=== PATIENT | female | born 1965 | race African-American/Black ===

== ENCOUNTER 2016-06-29 11:54 | Emergency (ER) | payer BC ==
--- NOTE | 2016-06-29 13:33 | ER Document Report ---
ED Medical Screen (RME) - General Mode of Arrival: Ambulatory Information source: Patient TRAVEL OUTSIDE OF THE [place] IN LAST 30 DAYS: No - HPI Patient complains to provider of: palpitations <JOCELYN SANDERS - Last Filed: 06/29/16 13:38> <AUBREE LIVINGSTON - Last Filed: 06/29/16 21:11> - General Chief Complaint: Palpitations Stated Complaint: palpitations Time Seen by Provider: 06/29/16 13:28 Notes: Patient with history of HTN presents with complaints of palpitations onset yesterday. Patient states she took her blood pressure when she noticed her heart was racing and it was high so she took a Lisinopril which has not slowed her heart. Patient states she has had palpations in the past and used to be on medication for them. Patient is visiting the area. Denies chest pain, difficulty breathing, headache, blurry vision, or back pain. Patient has not had a heart attack. Patient states she does drink about 3 cokes a day. (JOCELYN SANDERS) - Related Data Allergies/Adverse Reactions: Sulfa (Sulfonamide Antibiotics) Allergy (Severe, Verified 06/29/16 11:56) Rash Past Medical History - General Information source: Patient - Social History Cigarette use (# per day): No Frequency of alcohol use: None Drug Abuse: None Family history: Reviewed & Not Pertinent - Past Medical History Cardiac Medical History: Reports: Hx Hypertension - on meds Pulmonary Medical History: Denies: Hx Asthma, Hx Bronchitis, Hx COPD, Hx Pneumonia Neurological Medical History: Denies: Hx Cerebrovascular Accident, Hx Seizures Renal/ Medical History: Denies: Hx Peritoneal Dialysis Musculoskeltal Medical History: Denies Hx Arthritis - Immunizations Hx Diphtheria, Pertussis, Tetanus Vaccination: Yes <JOCELYN SANDERS - Last Filed: 06/29/16 13:38> Review of Systems - Review of Systems Cardiovascular: See HPI, Heart racing <JOCELYN SANDERS - Last Filed: 06/29/16 13:38> Physical Exam - Vital signs Interpretation: Tachycardic - Respiratory Respiratory status: No respiratory distress - Cardiovascular Rhythm: Tachycardia Heart sounds: Normal auscultation <JOCELYN SANDERS - Last Filed: 06/29/16 13:38> Course - Laboratory Result Diagrams: 06/29/16 16:20 06/29/16 16:20 <AUBREE LIVINGSTON - Last Filed: 06/29/16 21:11> - Vital Signs Vital signs: Temp Pulse Resp BP Pulse Ox 98.8 F 150 H 16 139/91 H 100 06/29/16 11:57 06/29/16 11:57 06/29/16 18:01 06/29/16 18:01 06/29/16 18:01 - Laboratory Laboratory results interpreted by me: 06/29/16 06/29/16 13:40 16:20 TSH 0.37 L Urine Blood SMALL H Urine Ascorbic Acid 20 H Doctor's Discharge <JOCELYN SANDERS - Last Filed: 06/29/16 13:38> <AUBREE LIVINGSTON - Last Filed: 06/29/16 21:11> - Discharge Clinical Impression: Palpitations Condition: Stable Disposition: HOME, SELF-CARE Additional Instructions: Do not drink caffeine. Drink plenty of water. Follow up with your primary care physician and support team member. Palpitations (Irregular/Rapid Heartrate) Irregular or rapid heartbeat is called "palpitation." To diagnose the cause of palpitation, we have to "catch it in the act" with an EKG. Sinus Tachycardia: This is a rapid (but NORMAL) rhythm that can be due to fever, pain, anxiety, lack of sleep, over-exertion, or drugs. Cold medications, caffeine, and diet pills are particularly likely to cause tachycardia. Usually , all that's required is rest, reassurance, and avoiding caffeine, alcohol, nicotine, and unnecessary medicines. Paroxysmal Atrial Tachycardia (PAT): This abnormally rapid heartbeat is caused by a "short circuit" in the electrical system of the heart. It is not dangerous, unless other heart disease is present. These attacks of PAT may occur occasionally for years. Medication is available for treatment. Paroxysmal Atrial Fibrillation or Atrial Flutter: This is irregular electrical activity in the upper heart chamber. These abnormal rhythms often occur with valve disease or in hearts damaged by hardening of the arteries. These rhythms usually require further testing, for example a cardiac echo. Premature Beats: Extra beats occur more commonly after caffeine, nicotine , alcohol, cold pills, diet pills. Emotional stress or fatigue also provoke them. Extra beats are only dangerous when heart disease is present. They usually need no treatment. If they're frequent, or if evidence of heart disease develops, medication can be given to suppress them. If we were unable to "catch" the palpitations on EKG, you should try to get an EKG immediately if the symptoms begin again. Contact the physician at once if you develop persistent lightheadedness, shortness of breath, chest pain , or swelling of the ankles. Referrals: MINAL ORTEZ MD [ACTIVE STAFF] - Follow up as needed Scribe Documentation - Scribe Written by Homar:: homar Saavedra, 06/29/16, 1342 acting as scribe for :: Paulo <JOCELYN SANDERS - Last Filed: 06/29/16 13:38>
[2016-06-29] MEDS ORDERED: NORMAL SALINE 1000 ML 1,000 ML IV ONE (13:34)
--- NOTE | 2016-06-29 13:50 | EKG REPORT ---
SEVERITY:- ABNORMAL ECG - SINUS TACHYCARDIA PATRICA, CONSIDER BIATRIAL ABNORMALITIES : Confirmed by: Kiersten Soria 29-Jun-2016 13:49:39
[2016-06-29 13:56] LABS: APPEARANCE,URINE SLIGHTLY-CLOUDY; BILIRUBIN,URINE NEGATIVE (NEGATIVE); GLUCOSE, URINE NEGATIVE (NEGATIVE); KETONES,URINE NEGATIVE (NEGATIVE); LEUKOCYTE ESTERASE,URINE NEGATIVE (NEGATIVE); NITRITE,URINE NEGATIVE (NEGATIVE); PROTEIN,URINE NEGATIVE (NEGATIVE); URINE SPECIFIC GRAVITY 1.011; UROBILINOGEN,URINE NEGATIVE mg/dL (<2.0)
[2016-06-29 14:11] LABS: URINE BARBITURATES SCREEN NEGATIVE; URINE METHADONE SCREEN NEGATIVE; URINE OPIATES LOW NEGATIVE; URINE PHENCYCLIDINE SCREEN NEGATIVE
--- NOTE | 2016-06-29 14:49 | ER Document Report ---
ED Cardiac - General Chief Complaint: Palpitations Stated Complaint: FAST HEARTBEAT,ELEBATED BLOOD PRESSURE Time Seen by Provider: 06/29/16 13:28 Mode of Arrival: Ambulatory Notes: The patient is a 51-year-old female, past medical history prior rapid heart rate , presents with 1 day of feeling her heart racing that resolved when she arrived to the emergency room. She said that you she used to have these symptoms and was on an unknown medication several years ago, but she no longer has a primary care physician and just moved to [place]. She has not taken this medication for several years. She says that she has only drank Coca-Cola over the past 2 days and has not drank much water. She is currently asymptomatic on my evaluation. Denies chest pain, shortness of breath, syncope , leg swelling, cough, hematemesis, nausea, vomiting, fevers, abdominal pain or rash. TRAVEL OUTSIDE OF THE [place] IN LAST 30 DAYS: No - Related Data Allergies/Adverse Reactions: Sulfa (Sulfonamide Antibiotics) Allergy (Severe, Verified 06/29/16 11:56) Rash Past Medical History - General Information source: Patient - Social History Smoking Status: Unknown if Ever Smoked Cigarette use (# per day): No Frequency of alcohol use: None Drug Abuse: None Family History: Reviewed & Not Pertinent Patient has suicidal ideation: No Patient has homicidal ideation: No - Past Medical History Cardiac Medical History: Reports: Hx Hypertension - on meds Denies: Hx Coronary Artery Disease, Hx Heart Attack Pulmonary Medical History: Denies: Hx Asthma, Hx Bronchitis, Hx COPD, Hx Pneumonia Neurological Medical History: Denies: Hx Cerebrovascular Accident, Hx Seizures Renal/ Medical History: Denies: Hx Peritoneal Dialysis Musculoskeltal Medical History: Denies Hx Arthritis - Immunizations Hx Diphtheria, Pertussis, Tetanus Vaccination: Yes Review of Systems - Review of Systems Notes: REVIEW OF SYSTEMS: CONSTITUTIONAL: -fevers, -chills EENT: -eye pain, -difficulty swallowing, -nasal congestion CARDIOVASCULAR: +palpitations, -chest pain, -syncope. RESPIRATORY: -cough, -SOB GASTROINTESTINAL: -abdominal pain, -nausea, -vomiting, -diarrhea GENITOURINARY: -dysuria, -hematuria MUSCULOSKELETAL: -back pain, -neck pain SKIN: -rash or skin lesions. HEMATOLOGIC: -easy bruising or bleeding. LYMPHATIC: -swollen, enlarged glands. NEUROLOGICAL: -altered mental status or loss of consciousness, -headache, - neurologic symptoms PSYCHIATRIC: -anxiety, -depression. ALL OTHER SYSTEMS REVIEWED AND NEGATIVE. Physical Exam - Vital signs Vitals: Temp Pulse Resp BP Pulse Ox 98.8 F 150 H 16 186/110 H 98 06/29/16 11:57 06/29/16 11:57 06/29/16 11:57 06/29/16 11:57 06/29/16 11:57 - Notes Notes: PHYSICAL EXAMINATION: GENERAL: Well-appearing, well-nourished and in no acute distress. HEAD: Atraumatic, normocephalic. EYES: Pupils equal round and reactive to light, extraocular movements intact, sclera anicteric, conjunctiva are normal. ENT: nares patent, oropharynx clear without exudates. Moist mucous membranes. NECK: Normal range of motion, supple without lymphadenopathy LUNGS: Breath sounds clear to auscultation bilaterally and equal. No wheezes rales or rhonchi. HEART: Regular rate and rhythm without murmurs ABDOMEN: Soft, nontender, normoactive bowel sounds. No guarding, no rebound. No masses appreciated. EXTREMITIES: Normal range of motion, no pitting or edema. No cyanosis. NEUROLOGICAL: Cranial nerves grossly intact. Normal speech, normal gait. Normal sensory, motor, and reflex exams. PSYCH: Normal mood, normal affect. SKIN: Warm, Dry, normal turgor, no rashes or lesions noted. Course - Re-evaluation Re-evalutation: Patient's tachycardia resolved while in the emergency room. Repeat EKG shows a normal sinus rhythm in the 90s and no evidence of Brugada, WPW or prolong QT syndrome. She is low risk per well's criteria and her d-dimer is negative for PE. She was monitored in the emergency room and no arrhythmias were witnessed. Instructed patient to cut down on her caffeine use and to follow-up with her primary care physician for referral to cardiology for possible Holter monitor. Patient is completely asymptomatic at this time. Given strict return precautions and she understands. - Vital Signs Vital signs: Temp Pulse Resp BP Pulse Ox 98.8 F 150 H 13 150/95 H 100 06/29/16 11:57 06/29/16 11:57 06/29/16 16:00 06/29/16 15:05 06/29/16 16:00 - Laboratory Result Diagrams: 06/29/16 16:20 06/29/16 16:20 Laboratory results interpreted by me: 06/29/16 06/29/16 13:40 16:20 TSH 0.37 L Urine Blood SMALL H Urine Ascorbic Acid 20 H - Diagnostic Test Radiology reviewed: Image reviewed, Reports reviewed - EKG Interpretation by Me EKG shows normal: Sinus rhythm, [place], Intervals, QRS Complexes, ST-T Waves Rate: Tachycardia Discharge - Discharge Clinical Impression: Palpitations Condition: Stable Disposition: HOME, SELF-CARE Additional Instructions: Do not drink caffeine. Drink plenty of water. Follow up with your primary care physician and [facility]. Palpitations (Irregular/Rapid Heartrate) Irregular or rapid heartbeat is called "palpitation." To diagnose the cause of palpitation, we have to "catch it in the act" with an EKG. Sinus Tachycardia: This is a rapid (but NORMAL) rhythm that can be due to fever, pain, anxiety, lack of sleep, over-exertion, or drugs. Cold medications, caffeine, and diet pills are particularly likely to cause tachycardia. Usually , all that's required is rest, reassurance, and avoiding caffeine, alcohol, nicotine, and unnecessary medicines. Paroxysmal Atrial Tachycardia (PAT): This abnormally rapid heartbeat is caused by a "short circuit" in the electrical system of the heart. It is not dangerous, unless other heart disease is present. These attacks of PAT may occur occasionally for years. Medication is available for treatment. Paroxysmal Atrial Fibrillation or Atrial Flutter: This is irregular electrical activity in the upper heart chamber. These abnormal rhythms often occur with valve disease or in hearts damaged by hardening of the arteries. These rhythms usually require further testing, for example a cardiac echo. Premature Beats: Extra beats occur more commonly after caffeine, nicotine , alcohol, cold pills, diet pills. Emotional stress or fatigue also provoke them. Extra beats are only dangerous when heart disease is present. They usually need no treatment. If they're frequent, or if evidence of heart disease develops, medication can be given to suppress them. If we were unable to "catch" the palpitations on EKG, you should try to get an EKG immediately if the symptoms begin again. Contact the physician at once if you develop persistent lightheadedness, shortness of breath, chest pain , or swelling of the ankles. Referrals: MINAL ORTEZ MD [ACTIVE STAFF] - Follow up as needed
[2016-06-29 16:33] LABS: ABSOLUTE LYMPHOCYTES (AUTO) 1.4 10^3/uL (0.5-4.7); ABSOLUTE MONOCYTES (AUTO) 0.2 10^3/uL (0.1-1.4); ABSOLUTE NEUT (AUTO) 3.3 10^3/uL (1.7-8.2); BASOPHILS % (AUTO) 0.7 % (0-2); EOSINOPHILS % (AUTO) 0.4 % (0-6); HEMATOCRIT 39.5 % (36.0-47.0); HEMOGLOBIN 12.9 g/dL (12.0-15.5); HGB HCT DIFFERENCE -0.8; LYMPHOCYTES % (AUTO) 27.9 % (13-45); MEAN CORPUSCULAR HGB CONC 32.6 g/dL (32.0-36.0); MEAN CORPUSCULAR VOLUME 92 fl (80-97); MONOCYTES % (AUTO) 4.7 % (3-13); RED BLOOD COUNT 4.29 10^6/uL (3.72-5.28); RED CELL DISTRIBUTION WIDTH 13.1 % (11.5-14.0); SEGMENTED NEUTROPHILS % (AUTO) 66.3 % (42-78)
[2016-06-29 17:09] LABS: ALANINE AMINOTRANSFERASE 27 U/L (9-52); ALBUMIN 4.3 g/dL (3.5-5.0); ALKALINE PHOSPHATASE 81 U/L (38-126); ANION GAP 13 (5-19); ASPARTATE AMINO TRANSFERASE 21 U/L (14-36); BILIRUBIN,DIRECT 0.4 mg/dL (0.0-0.4); BILIRUBIN,TOTAL 0.7 mg/dL (0.2-1.3); BLOOD UREA NITROGEN 10 mg/dL (7-20); CARBON DIOXIDE 25 mmol/L (22-30); CHLORIDE 105 mmol/L (98-107); CREATINE KINASE 70 U/L (30-135); CREATININE RESULT 0.66 mg/dL (0.52-1.25); GLUCOSE 81 mg/dL (75-110); POTASSIUM 3.9 mmol/L (3.6-5.0); TOTAL PROTEIN 7.6 g/dL (6.3-8.2)
[2016-06-29 17:25] LABS: FREE T3 4.91 pg/mL (2.77-5.27)
[2016-06-29 17:39] LABS: THYROID STIMULATING HORMONE 0.37 uIU/mL (0.47-4.68)
[2016-06-29 18:13] VITALS: BP 139/91
--- NOTE | 2016-06-30 12:02 | EKG REPORT ---
SEVERITY:- ABNORMAL ECG - SINUS RHYTHM LEFT ATRIAL ABNORMALITY : Confirmed by: Kiersten Soria 30-Jun-2016 12:01:59
== END 2016-06-29 18:25 | disposition home or self-care (01) ==
LOC: ER 11:54
DX: R00.2 Palpitations (principal); R03.0 Elevated blood-pressure reading, without diagnosis of hypertension
CPT/HCPCS: 93005; 99285; 36415; 84439; 82550; 84443; 85025; 80053; 81001; 84484; 80307; 84481; 85379; 71020; 93010; J7030